=== PATIENT | female | born 1965 | race American Indian/Alaskan Native ===

== ENCOUNTER 2018-02-27 02:08 | Emergency (ER) | payer OTHER ==
[~2018-02-27] VITALS: Ht 157.5 cm; Wt 74.4 kg
[2018-02-27] MEDS ORDERED: GABAPENTIN600 MG PO (02:24)
[2018-02-27] MEDS ORDERED: PERCOCET 5-3251 EACH PO (02:25)
== END 2018-02-27 03:16 | disposition home or self-care (01) ==
LOC: ED 02:08
DX: S83.92XA Sprain of unspecified site of left knee, initial encounter (principal); S20.219A Contusion of unspecified front wall of thorax, initial encounter; F17.200 Nicotine dependence, unspecified, uncomplicated; Z88.6 Allergy status to analgesic agent; Z79.899 Other long term (current) drug therapy; Y08.89XA Assault by other specified means, initial encounter
CPT/HCPCS: 71045; 73560; 99283